=== PATIENT | male | born 1985 | race Caucasian/White ===

== ENCOUNTER 2019-11-15 13:39 | Emergency (ER) | payer OTHER, SELFPAY ==
[~2019-11-15] VITALS: Ht 170.2 cm; Wt 77.1 kg
[2019-11-15 14:09] VITALS: Ht 170.2 cm; Wt 77.1 kg
[2019-11-15 15:55] VITALS: BP 116/71
== END 2019-11-15 15:55 | disposition home or self-care (01) ==
LOC: ED 13:39
DX: J02.8 Acute pharyngitis due to other specified organisms (principal); Z20.828 Contact with and (suspected) exposure to other viral communicable diseases; Z91.018 Allergy to other foods
CPT/HCPCS: U0003-CS